=== PATIENT | male | born 1935 | race Caucasian/White ===

== ENCOUNTER 2023-07-19 06:46 | Day surgery (SDC) | payer MEDICARE, MEDICAID ==
[~2023-07-19] VITALS: Ht 165.1 cm; Wt 69.1 kg
[2023-07-19] VITALS (9 sets, daily range): BP systolic 119–156; BP diastolic 59–84; PULSE 69–74; RESP 14–16; TEMP 98.3; O2SAT 92–99
[~2023-07-19 06:46] MED LIST: CIPR-260 PO
[2023-07-19] MEDS ORDERED: vancomycin/NS 1 GM in NS 250 ML IV ONE (07:25)
[2023-07-19] MEDS ORDERED: clindamycin-Cleocin 900mg/D5W 50 ML IV ONE (07:25)
[2023-07-19 07:45] LABS: BASOPHILS % (AUTO) 0.7 % (0-1); EOSINOPHILS # (AUTO) 0.1 X10'3 (0-0.9); EOSINOPHILS % (AUTO) 1.1 % (0-6); HEMATOCRIT 28.7 % (42.0-52.0); HEMOGLOBIN 9.4 g/dl (14.0-17.9); LYMPHOCYTES # (AUTO) 1.7 X10'3 (1.1-4.8); LYMPHOCYTES % (AUTO) 27.1 % (21-51); MEAN CORPUSCULAR HEMOGLOBIN 29.2 PG (27.0-31.0); MEAN CORPUSCULAR VOLUME 88.7 FL (78-98); MEAN PLATELET VOLUME 7.5 FL (7.4-10.4); MONOCYTES # (AUTO) 0.6 X10'3 (0-0.9); MONOCYTES % (AUTO) 8.9 % (2-12); NEUTROPHILS # (AUTO) 3.9 X10'3 (1.8-7.7); NEUTROPHILS % (AUTO) 62.2 % (42-75); PLATELET COUNT 184 X10'3 (140-440); RED BLOOD COUNT 3.23 X10'6 (4.70-6.10); RED CELL DISTRIBUTION WIDTH 17.9 % (11.5-14.5); WHITE BLOOD COUNT 6.2 X10'3 (4.5-11.0)
[2023-07-19] MEDS ORDERED: FINA5TAB11 PO (07:47)
[2023-07-19] MEDS ORDERED: METO-395 PO (07:47)
[2023-07-19] MEDS ORDERED: TRAM50TA2 PO (07:47)
[2023-07-19] MEDS ORDERED: FLO0.4C PO (07:47)
[2023-07-19] MEDS ORDERED: FERR325T28 PO (07:48)
[2023-07-19] MEDS ORDERED: BUPR1PAT21 TOP (07:48)
[2023-07-19] MEDS ORDERED: ATOR20TA66 PO (07:48)
[2023-07-19] MEDS ORDERED: ALBU8HFA PO (07:48)
[2023-07-19] MEDS ORDERED: CHOL500050 PO (07:48)
[2023-07-19] MEDS ORDERED: LEVO125T8 PO (07:48)
[2023-07-19] MEDS ORDERED: APIX2.5T PO (07:48)
[2023-07-19 07:56] LABS: ALBUMIN 3.3 G/DL (3.4-5.0); ANION GAP 10 (8-16); BLOOD UREA NITROGEN 42 MG/DL (7-18); BUN/CREATININE RATIO 16.6 (10.0-20.0); CALCIUM 9.3 MG/DL (8.5-10.1); CHLORIDE 105 MMOL/L (99-107); CREATININE 2.53 MG/DL (0.60-1.10); GLUCOSE 100 MG/DL (70-104); POTASSIUM 4.1 MMOL/L (3.5-5.1); SODIUM 141 MMOL/L (135-145); TOTAL CARBON DIOXIDE 26.3 MMOL/L (24-32); eCRCL 18 ML/MIN; eGFR 24 ML/MIN
[2023-07-19] MEDS ORDERED: fentaNYL/PF 50MCG/1 ML 2ML syringe ONE (08:17)
[2023-07-19] MEDS ORDERED: midazolam 1 mg/ML 2ml injection ONE (08:18)
[2023-07-19] MEDS ORDERED: vancomycin 1,000mg inj ONE (08:18)
[2023-07-19] MEDS ORDERED: LIDOcaine 1% W/epiNEPHrine 1:100,000 20ml vial ONE (08:18)
[2023-07-19] MEDS ORDERED: normal saline 1000ml 400 ML IV SCH (10:20)
== END 2023-07-19 12:30 | disposition home or self-care (01) ==
LOC: SSTAY O 06:46
PROVIDERS: ATTEND Internal Medicine Cardiovascular Disease
DX: Z45.010 Encounter for checking and testing of cardiac pacemaker pulse generator [battery] (principal); I48.11 Longstanding persistent atrial fibrillation; I49.5 Sick sinus syndrome; I10 Essential (primary) hypertension; E78.5 Hyperlipidemia, unspecified; E03.9 Hypothyroidism, unspecified; J44.9 Chronic obstructive pulmonary disease, unspecified; K21.9 Gastro-esophageal reflux disease without esophagitis; M19.90 Unspecified osteoarthritis, unspecified site; Z79.01 Long term (current) use of anticoagulants; Z79.890 Hormone replacement therapy; Z79.899 Other long term (current) drug therapy; Z98.890 Other specified postprocedural states; Z88.0 Allergy status to penicillin
CPT/HCPCS: 33228; 36415; 80048; 82948; 85025; 85610; 93005; 99152; C1785; J2250; J3010; J3370; J3490; J7030; 99153; A4615; A6258